=== PATIENT | male | born 1970 | race Caucasian/White ===

== ENCOUNTER 2022-01-16 11:24 | Observation (INO) ==
[2022-01-16 13:31] LABS: Appearance Urine Clear (Clear); Bilirubin Urine Negative (Negative); Blood Urine Negative (Negative); Color Urine Yellow; Glucose Urine UA Negative (Negative); Ketones Urine Negative (Negative); Leukocyte Esterase Urine Negative (Negative); Nitrite Urine Negative (Negative); Protein Urine Negative (Negative); Specific Gravity Urine 1.011 (1.000-1.030); Urobilinogen Urine Negative (Negative)
[2022-01-16 13:54] LABS: Basophils # (auto) 0.03 K/uL (0-0.2); Basophils % (auto) 0.5 %; Eosinophils # (auto) 0.08 K/uL (0-0.50); Eosinophils % (auto) 1.4 %; Hematocrit (blood only) 44.2 % (40.1-51.0); Hemoglobin 15.6 g/dl (14.0-18.0); Immature Granulocytes # (auto) 0.01 K/uL (0.00-0.02); Immature Granulocytes % (auto) 0.2 %; Lymphocytes % (auto) 23.3 %; Mean Corpuscular Hemoglobin 31.3 pg (25.0-34.0); Mean Corpuscular Hgb Conc 35.3 g/dL (32.0-36.0); Mean Corpuscular Volume 88.6 fL (80.0-100.0); Mean Platelet Volume 10.2 fL (9.4-12.4); Monocytes # (auto) 0.45 K/uL (0.24-0.82); Monocytes % (auto) 8.1 %; Neutrophils % (auto) 66.5 %; Platelet Count 226 K/uL (130-400); RDW Coefficient of Variation 12.2 % (11.5-14.5); RDW Standard Deviation 39.3 fL (36.4-46.3); Red Blood Count 4.99 M/uL (4.63-6.08); White Blood Count 5.57 K/ul (4.8-10.8)
[2022-01-16 14:12] LABS: Albumin Level 4.3 gm/dl (3.4-5.0); BUN Creatinine Ratio 13.5 (10-20); Bilirubin,Total 0.8 mg/dl (0.2-1.0); Calcium 9.2 mg/dl (8.5-10.1); Creatinine Clr Calc Pharmacy 95.1 ml/min; Est GFR (African American) 106.4 ml/min; Est GFR (Non-African American) 91.8 ml/min; Globulin 2.2 gm/dl (2.5-4.0); Potassium 4.3 mmol/L (3.5-5.1); Total Protein 6.5 gm/dl (6.0-8.3)
[2022-01-16] MEDS ORDERED: OPTIRAY 300 100mL IV ONE (15:32)
--- NOTE | 2022-01-16 16:04 | CT Scan Report ---
CHEST CT WITH CONTRAST HISTORY: Acute chest and abdominal pain with loss of sensation. loss of sensation below nipples TECHNIQUE: Multiaxial CT images of the chest, abdomen and pelvis were performed following the IV admi nistration of 90 cc of Optiray. A dose lowering technique was utilized adhering to the principles o f ALARA. COMPARISON: None. FINDINGS: CT CHEST: Unremarkable thyroid. No lymphadenopathy. The heart is normal in size without pericardial effusion. Unremarkable thoracic aorta. Unremarkable pulmonary artery. No pneumothorax, pleural effusion, airspa ce consolidation or overt pulmonary edema. Mild dependent subsegmental bibasilar atelectasis. There a re no suspicious pulmonary nodules or masses identified. The central airways are patent. Unremarkable soft tissues. No acute fracture or destructive bone lesion identified. CT ABDOMEN/PELVIS: No pneumatosis or pneumoperitoneum. Unremarkable spleen, pancreas, adrenal glands. There is equivocal gallbladder wall thickening without gallbladder distention. There are 2 cysts within the left hepati c lobe measuring up to 3.7 cm. Hepatic steatosis. Patency of the hepatic and portal veins. Unremarkab le kidneys. No hydronephrosis. Decompressed or bladder with wall thickening and perivesicular strandi ng. Prostamegaly. A Kirby catheter is in place. 1.3 cm fatty attenuating focus in the abdominal right lower quadrant on image 3 6 is likely benign. Small fat filled left inguinal hernia. No abdominal ao rtic aneurysm or lymphadenopathy. No bowel obstruction or bowel wall thickening. Nonspecific trace free pelvic fluid. Colonic diverticu losis. Moderate fecal retention. Normal appendix. Unremarkable soft tissues. No acute fracture. IMPRESSION: 1. No acute intrathoracic abnormality. 2. No bowel obstruction or bowel wall thickening. Normal appendix. 3. Decompressed urinary bladder with wall thickening and nonspecific trace free pelvic fluid. 4. Equivocal gallbladder wall thickening could be correlated with a right upper quadrant abdominal ul trasound. 5. Additional findings as above. ACT 112: Negative or not required by law. Electronically signed by: Luis Carlos Olson M.D. 01/16/2022 4:03 PM
--- NOTE | 2022-01-16 18:49 | Magnetic Resonance Report ---
MR thoracic spine wo con HISTORY: 51 years-old Male numbness below nipples numbness of the torso and upper extremities. COMPARISON: MRI cervical and lumbar spine study the TECHNIQUE: Multiplanar multisequence MRI of the thoracic spine was obtained without the use of IV con trast. FINDINGS: No gross extraspinal abnormality identified. The study is mildly motion degraded. Discogenic degenera tion of the lower cervical spine. There is normal signal of the thoracic and imaged cervical spinal c ord no acute fracture, subluxation, endplate erosion, significant bone marrow or soft tissue edema. T here is mild multilevel disc desiccation with minimal intervertebral disc space narrowing and spondyl itic spurring with mild facet arthrosis. No significant central canal or neural foraminal narrowing. IMPRESSION: 1. No significant central canal or neural foraminal narrowing of the thoracic spine. 2. No acute fracture. 3. Normal signal of the thoracic spinal cord. ACT 112: Negative or not required by law. The above report was generated using voice recognition software. It may contain grammatical, syntax o r spelling errors. Electronically signed by: Luis Carlos Olson M.D. 01/16/2022 6:47 PM
[2022-01-16] MEDS ORDERED: LIDOCAINE 1% LOCAL 20 ML VIAL ONE (21:39)
[2022-01-16 22:35] LABS: Appearance CSF Clear; CSF Count Tube # 3; CSF Xanthrochromic No xanthochromia; Color CSF Colorless; Red Blood Cell CSF (A) 0 /uL (0-); Total Protein CSF 84.3 mg/dl (15-45); White Blood Cell CSF (A) 0 /uL (0-5)
--- NOTE | 2022-01-16 22:50 | History & Physical Report ---
Date of Service January 16, 2022 Assessment & Plan (1) Weakness of both legs: Plan: 51yo male with a history of HTN presents with a one-week history of multiple symptoms including bilateral but asymmetric skin hypersensitivity, skin hyperalgesia, skin paresthesias, LE weakness, urinary incontinence, and fecal incontinence, concerning for neuroinflammatory disorder e.g. transverse myelitis. Multiple neurologic symptoms concerning for acute transverse myelitis vs other neuroinflammatory conditions Multi-level, bilateral, asymmetric symptoms of acute onset concerning for transverse myelitis vs other neuroinflammatory conditions If symptoms are due to neuroinflammatory condition, could possibly have been triggered by recent covid infection VSS: BP controlled, no tachycardia or tachypnea, patient afebrile, spO2 adequate on room air CSF noted with elevated total protein (84.3) without increased glucose, no WBCs or RBCs CSF chemistry and VDRL/West Nile RNA testing pending, serum MS panel pending Other labs unremarkable; no leukocytosis or leukopenia, no anemia, platelets wnl, no electrolyte abnormalities, LFTs wnl, UA not infected Imaging findings noted in HPI; no cord compression seen on MRI Admit to med/surg Neuro checks q4h Per ED provider discussion with neurology, recommended IVIg 0.4g/kg once daily for five days Will also start dexamethasone 10mg daily for five days Rodriguez catheter placed PT/OT ordered, incentive spirometry ordered CM consulted given possibly complex needs upon discharge Hypertension BP well-controlled on admission Continue home lisinopril FEN: regular diet Code status: full code DVT ppx: SCDs Held home meds: flomax Consults: neurology PT/OT: ordered Case management: following Dispo: med/surg (2) Paresthesia: (3) Acute urinary retention: (4) Urinary incontinence: (5) Fecal incontinence: (6) Elevated CSF protein: History of Present Illness Primary Care Provider: Maribel Elilson 51yo male with a history of HTN presents with a one-week history of multiple symptoms including bilateral but asymmetric skin hypersensitivity, skin hyperalgesia, skin paresthesias, LE weakness, urinary incontinence, and fecal incontinence, concerning for neuroinflammatory disorder e.g. transverse myelitis. Summary of 01/13 visit: Three weeks ago, patient was diagnosed with covid; patient had fatigue and congestion for about 3-4 days, after which all symptoms resolved. Patient then presented to the ED on 01/13 (three days ago) with multiple symptoms, which had started three days prior. Symptoms started with hypersensitivity of the right trapezius area that progressed across his back and chest to his left arm over the course of the day. Had trouble sleeping due to discomfort but no overt pain. He then developed RLE weakness with associated difficulty walking, in addition to paresthesias of the abdomen. Patient developed hyperalgesia of his hands and wrists, as well as urine incontinence. At that time he did not have any significant low back pain, fever, chills, abdominal pain, nausea, vomiting, c hest pain, SOB, lightheadedness, dizziness, syncope, hematuria, or saddle anesthesia. 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 At that time, Lyme IgG testing and anaplasma/babesia smears were negative. Imaging done at 01/13 ED visit: MRI brain: no acute intracranial abnormality MRI c-spine: no fracture or subluxation; small focal central disc protrusions at C3-C4, C5-C6, and C6-C7 MRI l-spine: no fracture or subluxation; small focal central disc protrusions at L4-L5 and L5-S1 without significant central canal or neural foraminal narrowing; bladder appears distended A rodriguez was recommended for bladder decompression, but patient declined. Straight cath yielded 850mL urine and patient felt markedly improved. Patient was started on flomax, but became confused after the dose he received in the ED, and so he has not filled this or taken it since. Today's visit: Patient presents today with persistent symptoms. Patient reports a distended abdomen, persistent bilateral leg weakness, and issues with incontinence. Patient has had two episodes of fecal incontinence in addition to continued urinary incontinence since last ED visit. Endorses numbness from his thighs upward to just below the nipple line, sparing the groin. Patient denies fever, chills, headache, vision changes, CP, palpitations, SOB, edema, abdominal pain, nausea, vomiting, hematochezia, melena, back pain, ligh theadedness, dizziness, or other symptoms. Denies saddle anesthesia. Initial vitals today were unremarkable; BP controlled, no tachycardia or tachypnea, patient afebrile, spO2 adequate on room air. Initial labs in the ED were without leukocytosis or leukopenia, no anemia, platelets wnl, no electrolyte abnormalities, LFTs wnl, UA not infected. Covid PCR negative. MS panel pending. Lumbar puncture in the ED revealed elevated CSF protein (84.3) without increased glucose, no WBCs or RBCs. CSF chemistry and VDRL/West Nile RNA testing pending. Imaging done at 01/16 ED visit: CT a/p: no acute intrathoracic abnormality; no bowel obstruction or bowel wall thickening; decompressed urinary bladder with wall thickening and nonspecific trace free pelvic fluid; equivocal gallbladder wall thickening could be correlated with a right upper quadrant abdominal ultrasound CT chest: same findings as CT a/p above MRI t-spine w/wo contrast ([facility] read): unremarkable spine alignment; vertebral body heights well-maintained; no abnormal marrow signal or abnormal enhancement; in-house over-read pending Surrogate decision-maker in case of an emergency: wilner García (cell: [phone]) Allergies Allergy/AdvReac Type Severity Reaction Status Date / Time Penicillins AdvReac Hives Verified 01/18/22 08:57 Home Medications Medication Instructions Recorded Confirmed Type lisinopril 5 mg tablet 5 mg PO PM 08/14/21 01/18/22 History Past Med/Surg History Medical History Hypertension Surgical History No pertinent past surgical history Social History Smoking Status: Never smoker Hx Substance Use: No Preferred Language: Estonian Communication Ability: Effective Chainer Required: No Beliefs That Will Affect Care: Quaker marital status: Current Living Situation: Spouse current occupational status: employed Feels Safe at Home: Yes Assistive Devices: None Physical Exam Physical Exam: Constitutional: tired-appearing, no acute distress HEENT: NCAT, no conjunctival injection, no nystagmus CV: regular rhythm, no murmur appreciated, extremities well-perfused, no LE edema Resp: CTABL, no wheezes/rales/rhonchi appreciated, no increased work of breathing GI: soft, nondistended, nontender, BS normoactive MSK: no gross deformities appreciated Skin: warm, dry, no rash appreciated (per ED provider): rectal tone intact Neuro: alert, oriented, strength 5/5 in upper and lower extremities, coordination testing intact, sensation intact without overt deficit, CN2-12 grossly intact, no additional neurologic deficit appreciated Results & Data Results & Data ([facility]) Vital Signs (Past 12 Hours) Vital Signs Temp Pulse Pulse Resp BP BP Pulse Ox 01/16/22 22:05 59 L 20 144/61 H 96 01/16/22 19:24 77 20 133/86 97 01/16/22 17:02 70 20 125/76 97 01/16/22 11:30 36.9 C 71 18 129/78 99 O2 Del Method 01/16/22 22:05 Room Air 01/16/22 19:24 Room Air 01/16/22 17:02 Room Air 01/16/22 11:30 Room Air Supervising Physician Co-Signing Physician Notes Patient seen and examined, chart reviewed, case discussed with Dr. Downs and I agree with the assessment and plan as above. Resident Activity Tracking Resident Involvement: Resident Care Provided and Element Setter Coverage Note Care Provided: Adult Hospital Medicine
[2022-01-16] MEDS ORDERED: GADOBUTROL 65ML VIAL IV ONE (23:11)
--- NOTE | 2022-01-16 23:28 | Emergency Department Note ---
Impression & Plan Acute urinary retention, Paresthesia, Urinary incontinence, Fecal incontinence, Falls [facility] [place] [facility] Provider Note NAME: CHELITA CANTU AGE: 51 SEX: M ARRIVES VIA: Walk-In INFORMANT: Patient and his ED PROVIDER(S): Jovita Mancilla DO CHIEF COMPLAINT: Urinary incontinence, fecal incontinence and falls PLAN: Disposition: Admit to the [facility] Condition: Guarded MEDICAL DECISION MAKING: This is a 51-year-old male patient who presents back to the emergency department after recurrent episodes of urinary incontinence, falls and now episodes of fecal incontinence. The patient had been seen here 4 days ago and had a work-up at that time for urinary retention. It seemed that he was having episodes of overflow incontinence. They had suggested at that time he have a Kirby catheter left in place but the patient had refused. That incontinence persisted over the weekend but the patient developed more symptoms. He was having episodes of gait abnormality with falls, leg weakness, and had to episodes of fecal incontinence. He also now hasparesthesias of the trunk from the nipple down to the genitals. During his visit on Sunday, the patient had an MRI of the brain, C-spine and lumbar spine along with laboratory testing which included a Lyme test. These were all negative. Unfortunately, the patient's symptoms have progressed. I obtained a CT scan of the chest and abdomen along with an MRI of the thoracic spine. I consulted with Dr. Parks, the neurologist on-call who recommended lumbar puncture along with a contrasted MRI of the thoracic spine. These were both completed. A contrasted MRI of the thoracic spine was unremarkable but the LP revealed a high protein level. Dr. Parks suggested starting IVIG. I passed this along to the admitting team. Triage Nursing notes reviewed and agree with them. Additional history obtained from the patient's who is at the bedside Prior medical records reviewed from his visit at the end of last week Vital Signs: reviewed and unremarkable Differential diagnosis: Thoracic spine lesion, transverse myelitis, Guillain-Mcdonough syndrome, postinfectious myelopathy, MS ER treatment provided: IVIG Diagnostics interpreted by me: Laboratory studies: See below: Imaging studies: As per radiology CT chest: See report CT abdomen pelvis: See report MRI thoracic spine: See report MRI thoracic spine with contrast: See report Consultation(s): Dr. Parks - Neurology HPI: 51/M arrives for evaluation of urinary incontinence, fecal incontinence, and falls. Over the past week, the patient has developed urinary incontinence and difficulty walking. 4 days ago, the patient noticed that he had a sensation of pins or needles to his abdomen. He was seen here on Sunday and had a significant work-up for urinary retention and urinary incontinence which seem to be an overflow incontinence situation. Upon discharge, the patient continued to have urinary incontinence but then developed fecal incontinence, abdominal bloating and increasing leg weakness and gait abnormality to the point that he had some falls over the weekend. His explains an episode where the patient became significantly diaphoretic, confused, and nearly passed out. ROS: See above HPI for pertinent positives & negatives. A total of 10 systems reviewed and were otherwise negative. PAST MEDICAL HISTORY:See Below PAST SURGICAL HISTORY:See Below FAMILY HISTORY:See Below SOCIAL HISTORY:See Below HOME MEDICATIONS: Lisinopril ALLERGIES: Penicillin VITALS:See Below PHYSICAL EXAMINATION: HEENT: Head - normocephalic and atraumatic. Pupils are equal, round, and reactive to light. Extraocular eye muscles are intact and sclera are anicteric. Nose - moist nasal mucosa without discharge. Mouth - moist buccal mucosa. Oropharynx is nonerythematous and there is no tonsillar exudate or edema noted. Neck: Supple; no JVD, nuchal rigidity, cervical lymphadenopathy. Heart: Regular rate and rhythm. There is a normal S1 and S2 with no murmurs, clicks, or gallops appreciated. Lungs: Clear to auscultation bilaterally with no wheezes, rales, or rhonchi. Abdomen: Soft, completely nontender, nondistended, with good bowel sounds. There are no palpable pulsatile masses or hepatosplenomegaly. There is no guarding, rigidity, or rebound noted. Extremities: No evidence of cyanosis, clubbing, or edema. There are easily palpable peripheral pulses. Neuro:The patient is awake and alert, oriented to day, time, and place. Muscle strength is 5/5 in all 4 extremities. 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 There are no cerebellar signs. Skin: The patient has loss of sensation over the anterior chest from the nipple line down to the pubic symphysis. Sensation seems to be normal in the legs. Rectal: Patient has normal rectal tone with soft brown stool. ED COURSE: Times/Reassessments: 1430 the patient was evaluated in room C6. Nursing staff had already placed a Kirby catheter in the patient as he had been incontinent of urine and had a bladder scan a complete history and physical was performed. Urine in the bladder. Of greater than 1000 mL of urine in the bladder. Previous electronic medical records were reviewed. The patient went for CT scan of the chest and abdomen. The patient then went for MRI of the thoracic spine. I discussed the case with the neurologist on-call. Lumbar Puncture Indication: Paresthesias of the trunk and gait abnormality. Verbal consent was obtained after the risks and benefits were explained. A time out was taken and the correct patient and site identified. The patient was placed in the upright position and the back was prepped with betadine and draped in the standard fashion. The L3 intervertebral space was identified, anesthetized locally with 1% lidocaine without epinephrine, and the spinal needle was inserted through the skin with the bevel parallel to the dural fibers. The needle was carefully advanced into the lumbar cistern and 4 tubes of clear CSF was obtained. The stylet was replaced and the needle was removed. A bandaid was placed and the patient was placed in the supine position. The patient tolerated the procedure well and there were no complications. The patient laid flat with the head only slightly elevated for approximately 1 hour. He went back for MRI of the thoracic spine with contrast. I discussed the case with the [facility] Hospitalist. 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 Beliefs That Will Affect Care: Holiness marital status: Current Living Situation: Spouse current occupational status: employed Feels Safe at Home: Yes Assistive Devices: None Allergies Allergies Allergy/AdvReac Type Severity Reaction Status Date / Time Penicillins AdvReac Hives Verified 01/18/22 08:57 Home Meds Home Medications Medication Instructions Recorded Confirmed lisinopril 5 mg tablet 5 mg PO PM 08/14/21 01/18/22 Results & Data (ED) Vital Signs Vital Signs - 24 hr 01/16/22 11:30 01/16/22 17:02 01/16/22 19:24 Temperature 36.9 C Temperature Source Temporal Artery Scan Pulse Rate 71 Pulse Rate [Right Finger] 70 77 Respiratory Rate 18 20 20 Respiratory Effort / Characteristics Non-Labored Spontaneous Non-Labored Non-Labored Respiratory Depth Normal Normal Normal Respiratory Pattern Regular Blood Pressure 129/78 Blood Pressure [Right Arm] 125/76 133/86 Blood Pressure Mean 95 Blood Pressure Mean [Right Arm] 92 101 Pulse Oximetry 99 97 97 Oxygen Delivery Method Room Air Room Air Room Air Sepsis Recent Fever Within 48 Hours No Sepsis New/Unexplained Change in Mental Status No Sepsis Action Taken by Nursing No Action Required 01/16/22 22:05 01/16/22 23:45 01/17/22 00:01 Temperature 37.2 C Temperature Source Oral Pulse Rate Pulse Rate [Right Finger] 59 L 73 82 Respiratory Rate 20 18 18 Respiratory Effort / Characteristics Non-Labored Non-Labored Non-Labored Respiratory Depth Normal Normal Normal Respiratory Pattern Blood Pressure Blood Pressure [Right Arm] 144/61 H 140/71 134/81 Blood Pressure Mean Blood Pressure Mean [Right Arm] 88 94 98 Pulse Oximetry 96 97 97 Oxygen Delivery Method Room Air Room Air Room Air Sepsis Recent Fever Within 48 Hours Sepsis New/Unexplained Change in Mental Status Sepsis Action Taken by Nursing 01/17/22 00:00 01/17/22 00:00 01/17/22 00:30 Temperature Temperature Source Pulse Rate 71 Pulse Rate [Right Finger] Respiratory Rate 18 Respiratory Effort / Characteristics Respiratory Depth Respiratory Pattern Blood Pressure 134/81 126/73 Blood Pressure [Right Arm] Blood Pressure Mean 98 90 Blood Pressure Mean [Right Arm] Pulse Oximetry 95 Oxygen Delivery Method Sepsis Recent Fever Within 48 Hours Sepsis New/Unexplained Change in Mental Status Sepsis Action Taken by Nursing 01/17/22 00:30 Temperature Temperature Source Pulse Rate 66 Pulse Rate [Right Finger] Respiratory Rate 19 Respiratory Effort / Characteristics Respiratory Depth Respiratory Pattern Blood Pressure Blood Pressure [Right Arm] Blood Pressure Mean Blood Pressure Mean [Right Arm] Pulse Oximetry 96 Oxygen Delivery Method Sepsis Recent Fever Within 48 Hours Sepsis New/Unexplained Change in Mental Status Sepsis Action Taken by Nursing Laboratory Data Result diagrams: 01/17/22 05:30 01/17/22 05:30 Lab Results 01/16/22 01/16/22 01/16/22 Range/Units 13:05 13:15 13:15 WBC 5.57 (4.8-10.8) K/ul RBC 4.99 (4.63-6.08) M/uL Hgb 15.6 (14.0-18.0) g/dl Hct 44.2 (40.1-51.0) % MCV 88.6 (80.0-100.0) fL MCH 31.3 (25.0-34.0) pg MCHC 35.3 (32.0-36.0) g/dL RDW Std Deviation 39.3 (36.4-46.3) fL RDW Coeff of Elzbieta 12.2 (11.5-14.5) % Plt Count 226 (130-400) K/uL MPV 10.2 (9.4-12.4) fL Immature Gran % (Auto) 0.2 % Neut % (Auto) 66.5 % Lymph % (Auto) 23.3 % [facility] % (Auto) 8.1 % Eos % (Auto) 1.4 % Baso % (Auto) 0.5 % Neut # (Auto) 3.70 (1.4-6.5) K/uL Lymph # (Auto) 1.30 (1.2-3.4) K/uL [facility] # (Auto) 0.45 (0.24-0.82) K/uL Eos # (Auto) 0.08 (0-0.50) K/uL Baso # (Auto) 0.03 (0-0.2) K/uL Immature Gran # (Auto) 0.01 (0.00-0.02) K/uL Sodium 140 (136-145) mmol/L Potassium 4.3 (3.5-5.1) mmol/L Chloride 107 (98-107) mmol/L Carbon Dioxide 28 (21-32) mmol/L Anion Gap 5 (3-11) BUN 13 (6-23) mg/dl Creatinine 0.96 (0.6-1.4) mg/dl Est Cr Clr Drug Dosing 95.1 ml/min Est GFR ( Amer) 106.4 ml/min Est GFR (Non-Af Amer) 91.8 ml/min BUN/Creatinine Ratio 13.5 (10-20) Glucose 85 (70-99(Fasting)) mg/dl Calcium 9.2 (8.5-10.1) mg/dl Total Bilirubin 0.8 (0.2-1.0) mg/dl AST 14 (13-39) U/L ALT 19 (7-52) U/L Alkaline Phosphatase 35 (34-104) U/L Total Protein 6.5 (6.0-8.3) gm/dl Albumin 4.3 (3.4-5.0) gm/dl Globulin 2.2 L (2.5-4.0) gm/dl Albumin/Globulin Ratio 2.0 (0.9-2) Urine Color Yellow Urine Appearance Clear (Clear) Urine pH 7.0 (4.5-7.5) Ur Specific Nichols 1.011 (1.000-1.030) Urine Protein Negative (Negative) Urine Glucose (UA) Negative (Negative) Urine Ketones Negative (Negative) Urine Blood Negative (Negative) Urine Nitrite Negative (Negative) Urine Bilirubin Negative (Negative) Urine Urobilinogen Negative (Negative) Ur Leukocyte Esterase Negative (Negative) Fluid Comment CSF Appearance CSF Color Xanthrochromic CSF WBC (0-5) /uL CSF RBC (0-) /uL CSF Cell Count Tube # CSF Chemistry Tube # CSF Glucose (40-70) mg/dl CSF Total Protein (15-45) mg/dl SARS-CoV-2, RNA, NAAT (NEGATIVE) 01/16/22 01/16/22 01/16/22 Range/Units 21:45 21:45 22:06 WBC (4.8-10.8) K/ul RBC (4.63-6.08) M/uL Hgb (14.0-18.0) g/dl Hct (40.1-51.0) % MCV (80.0-100.0) fL MCH (25.0-34.0) pg MCHC (32.0-36.0) g/dL RDW Std Deviation (36.4-46.3) fL RDW Coeff of Elzbieta (11.5-14.5) % Plt Count (130-400) K/uL MPV (9.4-12.4) fL Immature Gran % (Auto) % Neut % (Auto) % Lymph % (Auto) % [facility] [place] [facility] % (Auto) % Eos % (Auto) % Baso % (Auto) % Neut # (Auto) (1.4-6.5) K/uL Lymph # (Auto) (1.2-3.4) K/uL [facility] [place] [facility] # (Auto) (0.24-0.82) K/uL Eos # (Auto) (0-0.50) K/uL Baso # (Auto) (0-0.2) K/uL Immature Gran # (Auto) (0.00-0.02) K/uL Sodium (136-145) mmol/L Potassium (3.5-5.1) mmol/L Chloride (98-107) mmol/L Carbon Dioxide (21-32) mmol/L Anion Gap (3-11) BUN (6-23) mg/dl Creatinine (0.6-1.4) mg/dl Est Cr Clr Drug Dosing ml/min Est GFR ( Amer) ml/min Est GFR (Non-Af Amer) ml/min BUN/Creatinine Ratio (10-20) Glucose (70-99(Fasting)) mg/dl Calcium (8.5-10.1) mg/dl Total Bilirubin (0.2-1.0) mg/dl AST (13-39) U/L ALT (7-52) U/L Alkaline Phosphatase (34-104) U/L Total Protein (6.0-8.3) gm/dl Albumin (3.4-5.0) gm/dl Globulin (2.5-4.0) gm/dl Albumin/Globulin Ratio (0.9-2) Urine Color Urine Appearance (Clear) Urine pH (4.5-7.5) Ur Specific Nichols (1.000-1.030) Urine Protein (Negative) Urine Glucose (UA) (Negative) Urine Ketones (Negative) Urine Blood (Negative) Urine Nitrite (Negative) Urine Bilirubin (Negative) Urine Urobilinogen (Negative) Ur Leukocyte Esterase (Negative) Fluid Comment CSF Appearance Clear CSF Color Colorless Xanthrochromic No xanthochromia CSF WBC 0 (0-5) /uL CSF RBC 0 (0-) /uL CSF Cell Count Tube # 3 CSF Chemistry Tube # 1 CSF Glucose 49 (40-70) mg/dl CSF Total Protein 84.3 H (15-45) mg/dl SARS-CoV-2, RNA, NAAT NEGATIVE (NEGATIVE) Administered Medications Discontinued Medications Dexamethasone (Dexamethasone Sod Inj 4 Mg/Ml Vial) 10 mg IV ONE STA Stop: 01/16/22 23:39 Last Admin: 01/16/22 23:55 Dose: 10 mg Documented By: JIGNESH Gadobutrol (Gadobutrol 65ml Vial) 8.5 ml IV ONCE ONE Stop: 01/16/22 23:12 Last Admin: 01/16/22 23:11 Dose: 8.5 ml Documented By: ROGELIO Immune Globulin (Gamunex-C 10%) 100 mls @ 52 mls/hr IV Q24H EH; Protocol Stop: 01/21/22 04:01 Last Infusion: 01/17/22 05:47 Dose: 0 mls/hr Documented By: Infusion: 01/17/22 05:40 Dose: 208 mls/hr Documented By: Infusion: 01/17/22 05:10 Dose: 104 mls/hr Documented By: Admin: 01/17/22 04:40 Dose: 52 mls/hr Documented By: RICHIE Immune Globulin (Gamunex-C 10%) 200 mls @ 52 mls/hr IV Q24H EH; Protocol Stop: 01/21/22 08:51 Last Infusion: 01/17/22 06:41 Dose: 0 mls/hr Documented By: Infusion: 01/17/22 06:29 Dose: 416 mls/hr Documented By: Admin: 01/17/22 05:55 Dose: 208 mls/hr Documented By: RICHIE Ioversol (Optiray 300 100ml) 90 ml IV ONCE ONE Stop: 01/16/22 15:33 Last Admin: 01/16/22 15:36 Dose: 90 ml Documented By: BABAR Lidocaine HCl (Lidocaine 1% Local 20 Ml Vial) Confirm Administered Dose 20 ml .ROUTE .STK-MED ONE Stop: 01/16/22 21:40 Last Admin: 01/16/22 22:04 Dose: 20 ml Documented By: MILLIE Imaging Data Radiologist's Impression: Thoracic Spine MRI 01/16/22 22:09 THORACIC SPINE MRI WITH AND WITHOUT CONTRAST HISTORY: Numbness and weakness in legs. Evaluate thoracic spine with contrast. TECHNIQUE: Axial and sagittal pre and postcontrast T1 sequences of the thoracic spine were performed with the intravenous administration of 8.5 cc of Gadavist contrast at 1.5 Maribell MRI. COMPARISON: Noncontrast thoracic spine MRI 01/16/2022. FINDINGS: No fracture or subluxation within the thoracic spine. Disc spaces are preserved. No abnormal enhancement. Specifically, the thoracic spinal cord demonstrate a normal signal intensity. Paravertebral soft tissues are unremarkable. IMPRESSION: No abnormal enhancement within the thoracic spine. ACT 112: Negative or not required by law. Electronically signed by: Harlan Sanders M.D. 01/17/2022 7:47 AM Discharge Plan Visit Data Chief Complaint: Leg Weakness, Bilateral Stated Complaint: LEG WEAKNESS,BLOATED ABD ED Provider: Jovita Mancilla Discharge Problem: Acute urinary retention, Paresthesia, Urinary incontinence, Fecal incontinence, Falls Patient Disposition: Admitted As Inpatient Discharge Instructions Interventions: ED Discharge Assessment Last Done: 01/17/22 03:17 : Urinary incontinence Qualifiers: Urinary Incontinence type: overflow incontinence Qualified Code(s): N39.490 - Overflow incontinence Fecal incontinence Qualifiers: Fecal incontinence type: unspecified Qualified Code(s): R15.9 - Full incontinence of feces Falls Qualifiers: Encounter type: initial encounter Qualified Code(s): W19.XXXA - Unspecified fall, initial encounter
[2022-01-16] MEDS ORDERED: DEXAMETHASONE SOD INJ 4 MG/ML VIAL IV STA (23:38)
[2022-01-17] MEDS ORDERED: ONDANSETRON INJ 2 MG/ML 2 ML VIAL IV PRN (02:56)
[2022-01-17] MEDS ORDERED: MELATONIN 3 MG TAB PO PRN (02:56)
[2022-01-17] MEDS ORDERED: ACETAMINOPHEN 325 MG TAB PO PRN (02:56)
[2022-01-17] MEDS ORDERED: [UNRECOGNIZED DRUG - OTHER] IV SCH (04:00)
[2022-01-17] MEDS ORDERED: IMMUNE GLOBULIN IV SCH (04:00)
[2022-01-17] MEDS ORDERED: IMMUNE GLOB-GAMUNEX HUMAN 200 ML IV SCH (05:00)
[2022-01-17 05:48] LABS: Hematocrit (blood only) 43.4 % (40.1-51.0); Hemoglobin 15.7 g/dl (14.0-18.0); Mean Corpuscular Hemoglobin 31.7 pg (25.0-34.0); Mean Corpuscular Hgb Conc 36.2 g/dL (32.0-36.0); Mean Corpuscular Volume 87.5 fL (80.0-100.0); Platelet Count 222 K/uL (130-400); RDW Coefficient of Variation 11.9 % (11.5-14.5); RDW Standard Deviation 38.1 fL (36.4-46.3); Red Blood Count 4.96 M/uL (4.63-6.08); White Blood Count 7.47 K/ul (4.8-10.8)
[2022-01-17 06:09] LABS: Basophils # (auto) 0.01 K/uL (0-0.2); Basophils % (auto) 0.1 %; Immature Granulocytes # (auto) 0.02 K/uL (0.00-0.02); Immature Granulocytes % (auto) 0.3 %; Lymphocytes # (auto) 0.55 K/uL (1.2-3.4); Lymphocytes % (auto) 7.4 %; Monocytes # (auto) 0.05 K/uL (0.24-0.82); Monocytes % (auto) 0.7 %; Neutrophils # (auto) 6.84 K/uL (1.4-6.5); Neutrophils % (auto) 91.5 %
[2022-01-17 06:19] LABS: Albumin Globulin Ratio 1.9 (0.9-2); Albumin Level 4.3 gm/dl (3.4-5.0); BUN Creatinine Ratio 14.1 (10-20); Calcium 9.3 mg/dl (8.5-10.1); Creatinine Clr Calc Pharmacy 92.2 ml/min; Est GFR (African American) 102.5 ml/min; Est GFR (Non-African American) 88.4 ml/min; Globulin 2.3 gm/dl (2.5-4.0); Potassium 4.4 mmol/L (3.5-5.1); Total Protein 6.6 gm/dl (6.0-8.3)
--- NOTE | 2022-01-17 07:21 | Hospitalist Progress Note ---
Date of Service January 17, 2022 Assessment & Plan (1) Weakness of both legs: Plan: Pt is a 51 yo male with a history of HTN presents with a one-week history of multiple symptoms including bilateral but asymmetric skin hypersensitivity, skin hyperalgesia, skin paresthesias, LE weakness, urinary incontinence, and fecal incontinence, concerning for neuroinflammatory disorder (transverse myelitis). Multiple neurologic symptoms concerning for acute transverse myelitis vs other neuroinflammatory conditions - Multi-level, bilateral, asymmetric symptoms of acute onset concerning for transverse myelitis vs other neuroinflammatory conditions - If symptoms are due to neuroinflammatory condition, could possibly have been triggered by recent COVID infection - CSF noted with elevated total protein (84.3) without increased glucose, no WBCs or RBCs - CSF chemistry and VDRL/West Nile RNA testing pending, serum MS panel pending, babesia and anaplasma PCR pending - Other labs unremarkable; no leukocytosis or leukopenia, no anemia, platelets wnl, no electrolyte abnormalities, LFTs wnl, UA not infected - No acute findings on MRI brain, thoracic, lumbar spine or CTAP to suggest possible etiology - Neuro checks q4h - Per ED provider discussion with neurology, recommended IVIg 0.4g/kg once daily for five days. (1st day today) - Dexamethasone 10mg daily for five days. (1st day today) - Rodriguez catheter in place - PT/OT ordered, incentive spirometry ordered - CM consulted given possibly complex needs upon discharge - Neurology recommends continued inpatient monitoring with continuation of IVIg for 5 days. Pt does not desire admission at this time. He would prefer the treatments be set up for at home/MTU Hypertension - BP well-controlled on admission - Continue home lisinopril FEN: regular diet Code status: full code DVT ppx: SCDs Held home meds: flomax Dispo: med/surg (2) Paresthesia: (3) Acute urinary retention: (4) Urinary incontinence: (5) Fecal incontinence: (6) Elevated CSF protein: Admission and Anticipated Discharge Date Admission Date: January 17, 2022 Subjective Pt is a 51 yo male with a history of HTN presents with a one-week history of multiple symptoms including bilateral but asymmetric skin hypersensitivity, skin hyperalgesia, skin paresthesias, LE weakness, urinary incontinence, and fecal incontinence, concerning for neuroinflammatory disorder (transverse myelitis). 01/17/2022: Pt describes improvement in his symptoms today. His skin paresthesias are now limited to the left side of abdomen from about nipple line to inguinal region. He still feels weak upon standing for a "split second" but then feels that his strength is adequate. This weakness tends to improve with walking. He currently has a rodriguez. His last BM was Sunday. He denies fever, chills, visual changes, headaches, pain, saddle anesthesia. Physical Exam 2 Constitutional: NAD, vitals WNL, afebrile Eyes: PERRL Respiratory: CTA bilaterally, no increased work of breathing. No rhonchi, rales, or wheezing. Cardiovascular: RRR. No murmur noted. S1 and S2 normal. Neurologic: 5/5 strength throughout upper and lower extremities. Sensation intact and equal throughout except left side of abdomen from below nipple line to inguinal region pt has pins and needles sensation. This sensation begins midline and starts to wrap around his back. Gait normal Genitourinary: Rodriguez in place Results & Data Results & Data ([facility]) Vital Signs (Past 12 Hours) Vital Signs Temp Pulse Pulse Resp BP BP Pulse Ox 01/17/22 06:29 72 18 111/68 95 01/17/22 05:40 74 18 104/56 L 92 01/17/22 05:10 75 18 103/58 L 92 01/17/22 04:07 37.1 C 86 18 134/71 95 01/17/22 03:00 84 20 01/17/22 03:00 140/62 01/17/22 02:30 77 18 94 01/17/22 02:30 122/63 01/17/22 02:00 72 20 93 01/17/22 02:00 145/66 H 01/17/22 01:30 75 20 95 01/17/22 01:30 114/65 01/17/22 01:00 70 23 94 01/17/22 01:00 141/80 H 01/17/22 01:04 75 18 141/80 H 96 01/17/22 00:30 66 19 96 01/17/22 00:30 126/73 01/17/22 00:00 71 18 95 01/17/22 00:00 134/81 01/17/22 00:01 82 18 134/81 97 01/16/22 23:45 37.2 C 73 18 140/71 97 01/16/22 22:05 59 L 20 144/61 H 96 01/16/22 19:24 77 20 133/86 97 O2 Del Method 01/17/22 06:29 Room Air 01/17/22 05:40 Room Air 01/17/22 05:10 Room Air 01/17/22 04:07 Room Air 01/17/22 03:00 01/17/22 03:00 01/17/22 02:30 01/17/22 02:30 01/17/22 02:00 01/17/22 02:00 01/17/22 01:30 01/17/22 01:30 01/17/22 01:00 01/17/22 01:00 01/17/22 01:04 Room Air 01/17/22 00:30 01/17/22 00:30 01/17/22 00:00 01/17/22 00:00 01/17/22 00:01 Room Air 01/16/22 23:45 Room Air 01/16/22 22:05 Room Air 01/16/22 19:24 Room Air Resident Activity Tracking Resident Involvement: Resident Care Provided Care Provided: Adult Hospital Medicine
--- NOTE | 2022-01-17 07:48 | Magnetic Resonance Report ---
THORACIC SPINE MRI WITH AND WITHOUT CONTRAST HISTORY: Numbness and weakness in legs. Evaluate thoracic spine with contrast. TECHNIQUE: Axial and sagittal pre and postcontrast T1 sequences of the thoracic spine were performed with the intravenous administration of 8.5 cc of Gadavist contrast at 1.5 Maribell MRI. COMPARISON: Noncontrast thoracic spine MRI 01/16/2022. FINDINGS: No fracture or subluxation within the thoracic spine. Disc spaces are preserved. No abnormal enhancem ent. Specifically, the thoracic spinal cord demonstrate a normal signal intensity. Paravertebral soft tissues are unremarkable. IMPRESSION: No abnormal enhancement within the thoracic spine. ACT 112: Negative or not required by law. Electronically signed by: Harlan Sanders M.D. 01/17/2022 7:47 AM
[2022-01-17] MEDS ORDERED: IMMUNE GLOBULIN (HUMAN) SOLN IV SCH (09:00)
--- NOTE | 2022-01-17 13:53 | Neurology Consultation ---
Date of Consultation January 17, 2022 Assessment & Plan (1) Urinary incontinence: (2) Fecal incontinence: (3) Paresthesia: (4) Weakness of both legs: (5) Elevated CSF protein: (6) Radicular pain of thoracic region: (7) Acute urinary retention: Plan ASSESSMENT and PLAN: 1. Subacute, progressive paresthesia, involving right upper extremity, right lower extremity, and trunk with sensory level at T4, additional new urinary incontinence, one occasion no bowel incontinence, unsteady gait, and subjective leg weakness. 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 Presentation is not typical for Guillain-Mcdonough syndrome or CIDP, however, variants of such syndromes are still in differential. Plan: We do recommend IVIG, 0.4 g/kg daily, for 5 days. We do recommend inpatient monitoring and treatment. However, the patient refused admission and prefers to receive IVIG as an outpatient treatment. If he is adamant with admission, then IVIG treatment can be scheduled in outpatient setting. If the patient lives, then he will take responsibility and he is aware about risks of neurological decline, and receiving IVIG in outpatient setting. CSF work-up including MS panel, and West Nile virus titer are pending. If the patient does not respond to IVIG treatment, then further work-up including ganglioside antibody panel might be considered. Follow-up with neurology clinic in 2 weeks is strongly recommended. If the patient accept admission, then we will follow patient with you. Thank you for the consultation. History of Present Illness Reason for Consultation: Paresthesias, unsteady gait, bowel and bladder incontinence Requesting Physician: Janey Castro MD Attending Physician: Janey Castro MD History of Present Illness The patient is a very pleasant 51-year-old gentleman, who has been having unusual neurological syndrome, who presented to the emergency department yesterday, due to worsening symptoms. 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 Like many other coworkers, he had COVID-19 infection 3 weeks ago. Symptoms subsided in a week, and he returned back to work without any limitation. A week ago, the patient noticed sudden onset right proximal upper extremity, chest and shoulder paresthesia with some unusual pain. There was no injury or unusual physical activity prior to this. The patient was able to sleep overnight, and next day, he noticed decreased sensation with unusual paresthesia affecting right side of her chest, below the nipple, down to groin region. He also noticed right arm and right leg proximal paresthesia with some decreased or altered sensation. He did not seek medical attention right away. Later, he noticed some imbalance during ambulation which is described as of wobbliness. He was still able to walk but noticed some weakness and fatigue in his legs. Next day, his balance and ambulation was deteriorated further, and he was hardly able to walk without holding on objects. His left side of her chest and shoulder was also numb, with unusual tingling sensation, going down to groin region. There was obvious sensory leveling at T4. On the same day in the evening, the patient had an urinary incontinence. He was unaware about wetting himself. Next day, because of recurrent urinary incontinence as well as difficulty emptying urinary bladder, the patient went to emergency department. Kirby catheter was inserted because of urinary retention. The patient was not having respiratory distress, swallowing difficulty or any other cranial nerve symptoms. Initial presentation was unusual, and extensive work-up was done in the emergency department including head MRI with and without contrast, cervical spine MRI with and without contrast, and lumbar spine MRI without contrast, with unremarkable findings other than some bulging multilevel cervical disks. There was no cord compression, evidence of demyelinating lesions, or myelopathy. Other routine laboratory work-up did not show any abnormality. Lyme titer was also checked because the patient was in the field recently, but without any tick bite. All of abs including inflammatory parameters were negative, and the patient was discharged home with outpatient follow-up with urology on Sunday. The same evening and on Sunday, the patient was feeling better, without urinary incontinence, and was ambulating not normal but much better. He went back to work but, he noticed urinary incontinence while he was sitting in his car. He also had a near syncopal episode with dizziness, lightheadedness, while he was not eating and drinking well on Sunday evening. During this event, the patient had bowel incontinence with very loose stool. Sunday morning, he called his primary care physician, and abdominal and pelvic CT was recommended, and the patient was resent to emergency department. CT studies did not show abnormality, and overnight, on-call neurology was consulted. 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 Even though he was complaining of leg weakness and heaviness, but physical examination did not reveal any obvious weakness. His wobbliness has been better today. He has Kirby catheter in place and he is not sure whether he is still incontinent. He has not had any additional neurological symptoms since yesterday. Thoracic spine MRI with and without contrast did not show any abnormality including nerve root inflammations. 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 The patient at this point refuses admission, but prefers to receive IVIG outpatient at the infusion center . He is adamant leaving AGAINST MEDICAL ADVICE if he can receive IVIG as an outpatient treatment. Our impression, risk of progression of symptoms including sudden medical deterioration with respiratory and autonomic dysfunction are fully explained to patient. I have reviewed the patient's chart including imaging studies and visualized them personally. I have discussed the case with the patient, radiologist, and hospitalist physician. I have answered the patient's questions in detail. 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 HENT: Normal exam with inspection. CV: Hearth rhtyhm is regular. Neck: Supple, no carotid bruits. Lungs: Non-labored and comfortable breathing. Abdomen: Soft, non-tender, non-distended. Skin: No rash or ecchymosis. Extremities: No edema or cyanosis NEUROLOGICAL EXAMINATION: Mental Status: Alert and oriented to place, person and time. Cranial Nerves: II-XII are intact. No nystagmus. Funduscopy: Normal looking optic discs. Motor: 5/5 in all extremities without asymmetry. Tone: Normal without spasticity or rigidity. Sensory: Intact to all sensory modalities in upper and lower extremities other than paresthesia with decreased sensation on chest between T4-T10 level worse on the right. DTRs: 2+ all without asymmetry. No Babinsky. Coordination: No dysmetria with FTN testing. Speech: Fluent. Comprehension is intact. Gait: Normal with slight subjective unsteady feeling. No ataxia or abnormal walking pattern. Musculoskeletal: Normal muscle bulk, no atrophy. Results & Data ([facility]) Vital Signs (Past 12 Hours) Vital Signs Temp Pulse Pulse Resp BP BP Pulse Ox 01/17/22 07:00 36.9 C 78 18 95 01/17/22 06:29 72 18 111/68 95 01/17/22 05:40 74 18 104/56 L 92 01/17/22 05:10 75 18 103/58 L 92 01/17/22 04:07 37.1 C 86 18 134/71 95 01/17/22 03:00 84 20 01/17/22 03:00 140/62 01/17/22 02:30 77 18 94 01/17/22 02:30 122/63 01/17/22 02:00 72 20 93 01/17/22 02:00 145/66 H O2 Del Method 01/17/22 07:00 Room Air 01/17/22 06:29 Room Air 01/17/22 05:40 Room Air 01/17/22 05:10 Room Air 01/17/22 04:07 Room Air 01/17/22 03:00 01/17/22 03:00 01/17/22 02:30 01/17/22 02:30 01/17/22 02:00 01/17/22 02:00 Laboratory Results Laboratory Results - last 24 hr 01/16/22 01/16/22 01/16/22 21:45 21:45 21:45 WBC RBC Hgb Hct MCV MCH MCHC RDW Std Deviation RDW Coeff of Elzbieta Plt Count MPV Immature Gran % (Auto) Neut % (Auto) Lymph % (Auto) Luce % (Auto) Eos % (Auto) Baso % (Auto) Neut # (Auto) Lymph # (Auto) Luce # (Auto) Eos # (Auto) Baso # (Auto) Immature Gran # (Auto) Sodium Potassium Chloride Carbon Dioxide Anion Gap BUN Creatinine Est Cr Clr Drug Dosing Est GFR ( Amer) Est GFR (Non-Af Amer) BUN/Creatinine Ratio Glucose Calcium Total Bilirubin AST ALT Alkaline Phosphatase Total Protein Albumin Globulin Albumin/Globulin Ratio Fluid Comment CSF Appearance Clear CSF Color Colorless Xanthrochromic No xanthochromia CSF WBC 0 CSF RBC 0 CSF Cell Count Tube # 3 CSF Chemistry Tube # CSF Glucose CSF Total Protein CSF VDRL CSF West Nile RNA Pending A. phagocytophilum DNA SARS-CoV-2, RNA, NAAT Miscellaneous Test Pending 01/16/22 01/16/22 01/16/22 21:45 21:45 22:06 WBC RBC Hgb Hct MCV MCH MCHC RDW Std Deviation RDW Coeff of [place]zbi[place] Plt Count MPV Immature Gran % (Auto) Neut % (Auto) Lymph % (Auto) Luce % (Auto) Eos % (Auto) Baso % (Auto) Neut # (Auto) Lymph # (Auto) Luce # (Auto) Eos # (Auto) Baso # (Auto) Immature Gran # (Auto) Sodium Potassium Chloride Carbon Dioxide Anion Gap BUN Creatinine Est Cr Clr Drug Dosing Est GFR ( Amer) Est GFR (Non-Af Amer) BUN/Creatinine Ratio Glucose Calcium Total Bilirubin AST ALT Alkaline Phosphatase Total Protein Albumin Globulin Albumin/Globulin Ratio Fluid Comment CSF Appearance CSF Color Xanthrochromic CSF WBC CSF RBC CSF Cell Count Tube # CSF Chemistry Tube # 1 CSF Glucose 49 CSF Total Protein 84.3 H CSF VDRL Pending CSF West Nile RNA A. phagocytophilum DNA SARS-CoV-2, RNA, NAAT NEGATIVE Miscellaneous Test 01/17/22 01/17/22 01/17/22 05:30 05:30 05:30 WBC 7.47 RBC 4.96 Hgb 15.7 Hct 43.4 MCV 87.5 MCH 31.7 MCHC 36.2 H RDW Std Deviation 38.1 RDW Coeff of Elzbieta 11.9 Plt Count 222 MPV 10.0 Immature Gran % (Auto) 0.3 Neut % (Auto) 91.5 Lymph % (Auto) 7.4 Luce % (Auto) 0.7 Eos % (Auto) 0.0 Baso % (Auto) 0.1 Neut # (Auto) 6.84 H Lymph # (Auto) 0.55 L Luce # (Auto) 0.05 L Eos # (Auto) 0.00 Baso # (Auto) 0.01 Immature Gran # (Auto) 0.02 Sodium 136 Potassium 4.4 Chloride 106 Carbon Dioxide 22 Anion Gap 8 BUN 14 Creatinine 0.99 Est Cr Clr Drug Dosing 92.2 Est GFR ( Amer) 102.5 Est GFR (Non-Af Amer) 88.4 BUN/Creatinine Ratio 14.1 Glucose 162 H Calcium 9.3 Total Bilirubin 1.0 AST 14 ALT 18 Alkaline Phosphatase 37 Total Protein 6.6 Albumin 4.3 Globulin 2.3 L Albumin/Globulin Ratio 1.9 Fluid Comment CSF Appearance CSF Color Xanthrochromic CSF WBC CSF RBC CSF Cell Count Tube # CSF Chemistry Tube # CSF Glucose CSF Total Protein CSF VDRL CSF West Nile RNA A. phagocytophilum DNA Pending SARS-CoV-2, RNA, NAAT Miscellaneous Test Diagnostic Findings Abdomen/Pelvis CT 01/16/22 15:[address] WITH CONTRAST HISTORY: Acute chest and abdominal pain with loss of sensation. loss of sensation below nipples TECHNIQUE: Multiaxial CT images of the chest, abdomen and pelvis were performed following the IV administration of 90 cc of Optiray. A dose lowering technique was utilized adhering to the principles of ALARA. COMPARISON: None. FINDINGS: CT CHEST: Unremarkable thyroid. No lymphadenopathy. The heart is normal in size without pericardial effusion. Unremarkable thoracic aorta. Unremarkable pulmonary artery. No pneumothorax, pleural effusion, airspace consolidation or overt pulmonary edema. Mild dependent subsegmental bibasilar atelectasis. There are no suspicious pulmonary nodules or masses identified. The central airways are patent. Unremarkable soft tissues. No acute fracture or destructive bone lesion identified. CT ABDOMEN/PELVIS: No pneumatosis or pneumoperitoneum. Unremarkable spleen, pancreas, adrenal glands. There is equivocal gallbladder wall thickening without gallbladder di stention. There are 2 cysts within the left hepatic lobe measuring up to 3.7 cm. Hepatic steatosis. Patency of the hepatic and portal veins. Unremarkable kidneys. No hydronephrosis. Decompressed or bladder with wall thickening and perivesicular stranding. Prostamegaly. A Kirby catheter is in place. 1.3 cm fatty attenuating focus in the abdominal right lower quadrant on image 3 6 is likely benign. Small fat filled left inguinal hernia. No abdominal aortic aneurysm or lymphadenopathy. No bowel obstruction or bowel wall thickening. Nonspecific trace free pelvic fluid. Colonic diverticulosis. Moderate fecal retention. Normal appendix. Unremarkable soft tissues. No acute fracture. IMPRESSION: 1. No acute intrathoracic abnormality. 2. No bowel obstruction or bowel wall thickening. Normal appendix. 3. Decompressed urinary bladder with wall thickening and nonspecific trace free pelvic fluid. 4. Equivocal gallbladder wall thickening could be correlated with a right upper quadrant abdominal ultrasound. 5. Additional findings as above. ACT 112: Negative or not required by law. Electronically signed by: Luis Carlos Olson M.D. 01/16/2022 4:[address] 01/16/22 15:[address] WITH CONTRAST HISTORY: Acute chest and abdominal pain with loss of sensation. loss of sensation below nipples TECHNIQUE: Multiaxial CT images of the chest, abdomen and pelvis were performed following the IV administration of 90 cc of Optiray. A dose lowering technique was utilized adhering to the principles of ALARA. COMPARISON: None. FINDINGS: CT CHEST: Unremarkable thyroid. No lymphadenopathy. The heart is normal in size without pericardial effusion. Unremarkable thoracic aorta. Unremarkable pulmonary artery. No pneumothorax, pleural effusion, airspace consolidation or overt pulmonary edema. Mild dependent subsegmental bibasilar atelectasis. There are no suspicious pulmonary nodules or masses identified. The central airways are patent. Unremarkable soft tissues. No acute fracture or destructive bone lesion identified. CT ABDOMEN/PELVIS: No pneumatosis or pneumoperitoneum. Unremarkable spleen, pancreas, adrenal glands. There is equivocal gallbladder wall thickening without gallbladder distention. There are 2 cysts within the left hepatic lobe measuring up to 3.7 cm. Hepatic steatosis. Patency of the hepatic and portal veins. Unremarkable kidneys. No hydronephrosis. Decompressed or bladder with wall thickening and perivesicular stranding. Prostamegaly. A Kirby catheter is in place. 1.3 cm fatty attenuating focus in the abdominal right lower quadrant on image 3 6 is likely benign. Small fat filled left inguinal hernia. No abdominal aortic aneurysm or lymphadenopathy. No bowel obstruction or bowel wall thickening. Nonspecific trace free pelvic fluid. Colonic diverticulosis. Moderate fecal retention. Normal appendix. Unremarkable soft tissues. No acute fracture. IMPRESSION: 1. No acute intrathoracic abnormality. 2. No bowel obstruction or bowel wall thickening. Normal appendix. 3. Decompressed urinary bladder with wall thickening and nonspecific trace free pelvic fluid. 4. Equivocal gallbladder wall thickening could be correlated with a right upper quadrant abdominal ultrasound. 5. Additional findings as above. ACT 112: Negative or not required by law. Electronically signed by: Luis Carlos Olson M.D. 01/16/2022 4:03 PM Thoracic Spine MRI 01/16/22 16:45 MR thoracic spine wo con HISTORY: 51 years-old Male numbness below nipples numbness of the torso and upper extremities. COMPARISON: MRI cervical and lumbar spine study the TECHNIQUE: Multiplanar multisequence MRI of the thoracic spine was obtained without the use of IV contrast. FINDINGS: No gross extraspinal abnormality identified. The study is mildly motion degraded. Discogenic degeneration of the lower cervical spine. There is normal signal of the thoracic and imaged cervical spinal cord no acute fracture, subluxation, endplate erosion, significant bone marrow or soft tissue edema. There is mild multilevel disc desiccation with minimal intervertebral disc space narrowing and spondylitic spurring with mild facet arthrosis. No significant central canal or neural foraminal narrowing. IMPRESSION: 1. No significant central canal or neural foraminal narrowing of the thoracic spine. 2. No acute fracture. 3. Normal signal of the thoracic spinal cord. ACT 112: Negative or not required by law. The above report was generated using voice recognition software. It may contain grammatical, syntax or spelling errors. Electronically signed by: Luis Carlos Olson M.D. 01/16/2022 6:47 PM Thoracic Spine MRI 01/16/22 22:09 THORACIC SPINE MRI WITH AND WITHOUT CONTRAST HISTORY: Numbness and weakness in legs. Evaluate thoracic spine with contrast. TECHNIQUE: Axial and sagittal pre and postcontrast T1 sequences of the thoracic spine were performed with the intravenous administration of 8.5 cc of Gadavist contrast at 1.5 [place] MRI. COMPARISON: Noncontrast thoracic spine MRI 01/16/2022. FINDINGS: No fracture or subluxation within the thoracic spine. Disc spaces are preserved. No abnormal enhancement. Specifically, the thoracic spinal cord demonstrate a normal signal intensity. Paravertebral soft tissues are unremarkable. IMPRESSION: No abnormal enhancement within the thoracic spine. ACT 112: Negative or not required by law. Electronically signed by: Harlan Sanders M.D. 01/17/2022 7:47 AM Brain MRI w/wo contrast, C-spine MRI w/wo contrast and L-spine MRI were also unremarkable other than cervical bulging discs.
--- NOTE | 2022-01-17 15:44 | Discharge Summary ---
Date of Service January 17, 2022 Admission HPI Per Admitting Provider 51yo male with a history of HTN presents with a one-week history of multiple symptoms including bilateral but asymmetric skin hypersensitivity, skin hyperalgesia, skin paresthesias, LE weakness, urinary incontinence, and fecal incontinence, concerning for neuroinflammatory disorder e.g. transverse myelitis. Summary of 01/13 visit: Three weeks ago, patient was diagnosed with covid; patient had fatigue and congestion for about 3-4 days, after which all symptoms resolved. Patient then presented to the ED on 01/13 (three days ago) with multiple symptoms, which had started three days prior. Symptoms started with hypersensitivity of the right trapezius area that progressed across his back and chest to his left arm over the course of the day. Had trouble sleeping due to discomfort but no overt pain. He then developed RLE weakness with associated difficulty walking, in addition to paresthesias of the abdomen. Patient developed hyperalgesia of his hands and wrists, as well as urine incontinence. At that time he did not have any significant low back pain, fever, chills, abdominal pain, nausea, vomiting, chest pain, SOB, lightheadedness, dizziness, syncope, hematuria, or saddle anesthesia. 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 At that time, Lyme IgG testing and anaplasma/babesia smears were negative. Imaging done at 01/13 ED visit: MRI brain: no acute intracranial abnormality MRI c-spine: no fracture or subluxation; small focal central disc protrusions at C3-C4, C5-C6, and C6-C7 MRI l-spine: no fracture or subluxation; small focal central disc protrusions at L4-L5 and L5-S1 without significant central canal or neural foraminal narrowing; bladder appears distended A rodriguez was recommended for bladder decompression, but patient declined. Straight cath yielded 850mL urine and patient felt markedly improved. Patient was started on flomax, but became confused after the dose he received in the ED, and so he has not filled this or taken it since. Today's visit: Patient presents today with persistent symptoms. Patient reports a distended abdomen, persistent bilateral leg weakness, and issues with incontinence. Patient has had two episodes of fecal incontinence in addition to continued urinary incontinence since last ED visit. Endorses numbness from his thighs upward to just below the nipple line, sparing the groin. Patient denies fever, chills, headache, vision changes, CP, palpitations, SOB, edema, abdominal pain, nausea, vomiting, hematochezia, melena, back pain, lightheadedness, dizziness, or other symptoms. Denies saddle anesthesia. Initial vitals today were unremarkable; BP controlled, no tachycardia or tachypnea, patient afebrile, spO2 adequate on room air. Initial labs in the ED were without leukocytosis or leukopenia, no anemia, platelets wnl, no electrolyte abnormalities, LFTs wnl, UA not infected. Covid PCR negative. MS panel pending. Lumbar puncture in the ED revealed elevated CSF protein (84.3) without increased glucose, no WBCs or RBCs. CSF chemistry and VDRL/West Nile RNA testing pending. Imaging done at 01/16 ED visit: CT a/p: no acute intrathoracic abnormality; no bowel obstruction or bowel wall thickening; decompressed urinary bladder with wall thickening and nonspecific trace free pelvic fluid; equivocal gallbladder wall thickening could be correlated with a right upper quadrant abdominal ultrasound CT chest: same findings as CT a/p above MRI t-spine w/wo contrast ([facility] read): unremarkable spine alignment; vertebral body heights well-maintained; no abnormal marrow signal or abnormal enhancement; in-house over-read pending Surrogate decision-maker in case of an emergency: Beth García (cell: [phone]) Principal Diagnosis Weakness of both legs with paresthesia and fecal incontinence and acute urinary retention Elevated CSF protein Discharge Exam Constitutional NAD, vitals WNL, afebrile Eyes PERRL Respiratory CTA bilaterally, no rhonchi, rales, or wheezing. No increased work of breathing. Cardiovascular RRR. No murmur noted. Neurologic 5/5 strength throughout upper and lower extremities Sensation intact and equal throughout except left side of abdomen from below nipple line to inguinal region pt has pins and needles sensation. This sensation begins midline and starts to wrap around his back. Gait normal Discharge Data Allergies Allergy/AdvReac Type Severity Reaction Status Date / Time Penicillins AdvReac Hives Unverified 08/14/21 13:00 Consultations 01/16/22 22:18 ED Decision to Admit Stat 01/17/22 07:00 Consult Neurology Routine Ordered Studies 01/16/22 15:00 CT Abd and Pelvis [CT abd pelvis IV con only] Stat 1. No acute intrathoracic abnormality. 2. No bowel obstruction or bowel wall thickening. Normal appendix. 3. Decompressed urinary bladder with wall thickening and nonspecific trace free pelvic fluid. 4. Equivocal gallbladder wall thickening could be correlated with a right upper quadrant abdominal ultrasound. 5. Additional findings as above. CT chest diagnostic w con Stat 1. No acute intrathoracic abnormality. 2. No bowel obstruction or bowel wall thickening. Normal appendix. 3. Decompressed urinary bladder with wall thickening and nonspecific trace free pelvic fluid. 4. Equivocal gallbladder wall thickening could be correlated with a right upper quadrant abdominal ultrasound. 5. Additional findings as above. 01/16/22 16:45 MR thoracic spine wo con Stat 1. No significant central canal or neural foraminal narrowing of the thoracic spine. 2. No acute fracture. 3. Normal signal of the thoracic spinal cord. 01/16/22 22:09 MR thoracic spine wo/w con Stat No abnormal enhancement within the thoracic spine. Hospital Course (1) Weakness of both legs: Pt is a 51 yo male with a history of HTN presents with a one-week history of multiple symptoms including bilateral but asymmetric skin hypersensitivity, skin hyperalgesia, skin paresthesias, LE weakness, urinary retention, and fecal incontinence, concerning for neuroinflammatory disorder (transverse myelitis). He was recently in the ER (01/13) for the same symptoms. Multiple neurologic symptoms concerning for acute transverse myelitis vs other neuroinflammatory conditions - Multi-level, bilateral, asymmetric symptoms of acute onset concerning for transverse myelitis vs other neuroinflammatory conditions - If symptoms are due to neuroinflammatory condition, could possibly have been triggered by recent COVID infection (3 weeks ago) - CSF noted with elevated total protein (84.3) without increased glucose, no WBCs or RBCs - CSF chemistry and VDRL/West Nile RNA testing pending, serum MS panel pending, babesia and anaplasma PCR pending - Other labs unremarkable; no leukocytosis or leukopenia, no anemia, platelets wnl, no electrolyte abnormalities, LFTs wnl, UA not infected - No acute findings on MRI brain or MRI of cervical, thoracic, and lumbar spine or CTAP to suggest possible etiology - Neurology recommended continued inpatient monitoring with continuation of IVIg for 5 days. Pt does not desire admission at this time. He would prefer the treatments be set up outpatient. - Per ED provider discussion with neurology, recommended IVIg 0.4g/kg once daily for five days. 1st day today- will continue for the next 3 days as outpatient at [facility] (neuro ok with 4 days of total treatment) - Dexamethasone 10mg daily for five days. 1st day today. Will discontinue upon discharge Urinary retention sec to above process - Pt discharged with a rodriguez catheter. Will need outpatient voiding trial. Referral for urology placed as well. Hypertension - BP well-controlled on admission and throughout stay - Continue home lisinopril FEN: regular diet Code status: full code Dispo: home (2) Paresthesia: (3) Acute urinary retention: (4) Urinary incontinence: (5) Fecal incontinence: (6) Elevated CSF protein: Total Time Total Time Spent Total Time Spent (In Minutes): As per attending attestation Discharge Plan Discharge Items Patient Disposition: Home - Self-Care Reason For Visit: MULTIPLE NEURO SYMPTOMS, C/F NEUROINFLAMMATORY D/O Discharge Diagnosis: Weakness of both legs with T4-T10 paresthesias and episodes of fecal/urinary incontinence, concerning for neuroinflammatory cause Activity: Per Instructions section Non-emergency contact: Primary Care Provider Call non-emergency contact if: your symptoms worsen Follow-up/Referrals: Sav Boogie MD [Physician] - (D/c from hospital with rodriguez catheter for urinary retention) Maribel Ellison [Primary Care Provider] - Alex Parks MD [Physician] - Diet: Regular Addtl Attending Provider Instructions: You were in the hospital/emergency room for multiple neurologic symptoms including weakness in your legs, pins and needles sensation on your abdomen, and fecal/urinary incontinence. You were treated with steroids (dexamethasone) and IV immunoglobulin. Medications: - You will no longer be taking a steroid. - You have been set up to receive the IV immunoglobulin for 3 days (Sunday, , and Sunday AM this week for 5 hours of treatment each morning) at the [facility]. The [facility] is on the ground level of the hospital. - Continue your lisinopril 5 mg at home for your blood pressure. Follow up appointments: Follow up with Neurology within the next 2 weeks -- a referral has been sent for you. If you have not heard from them before the weekend, please call their office. Make a follow up appointment with your PCP within the next week. It is very important that you follow up with them shortly after discharge from the hospital. CALL 911 OR RETURN TO THE EMERGENCY DEPARTMENT if you experience any of the following: - Worsening of your symptoms (including increased weakness or sensation loss) - Increased fecal/urinary incontinence - Loss of sensation around your perineum (genitals/anus) - Severe headaches or dizziness - Chest pain, palpitation - Uncontrollable nausea or vomiting, abdominal pain - Any other concerning symptoms Pending Studies at Discharge: Yes (CSF chemistry, VDRL, West Nile, Serum MS testing, Babesia and anaplasma PCR) Stand-Alone Forms: My [facility], Smoking Cessation Medications and DC Order Prescriptions: Continued lisinopril 5 mg tablet 5 mg PO PM Discontinued tamsulosin [Flomax] 0.4 mg capsule 0.4 mg PO DAILY Qty: 14 0RF Discharge Orders: Discharge Order (Routine); Ordered 01/17/22 Ordered By: Kofi [facility]Franc[facility] Data Admit Date/Time: 01/17/22 00:40 Attending Provider: Janey Castro Admit Provider: Gino Downs Primary Care Provider: Maribel Ellison Other Providers: Julianne Clement Adam M. Other Interventions: Discharge Summary Assessment (RN) Last Done: 01/17/22 16:21 Supervising Physician Co-Signing Physician Notes Resident Physician Supervision Note: I independently interviewed and examined the patient and verified the clement history and physical, reviewed labs and image studies and agree with resident Dr. Navarro findings and care plan. Resident Activity Tracking Resident Involvement: Resident Care Provided Care Provided: Adult Hospital Medicine
[2022-01-17] MEDS ORDERED: lisinopril 5 MG TAB PO SCH (21:00)
[2022-01-17] MEDS ORDERED: dexAMETHasone 10 MG in SYRINGE 0 ML IV SCH (22:00)
--- NOTE | 2022-01-19 02:06 | Billing Data ---
Date of Service January 16, 2022 Coding Level of Care Code 15099 Initial Inpt Care Lvl 2
== END 2022-01-17 17:16 | disposition home or self-care (01) ==
LOC: ED 11:24 → EDINP 11:24 → SUATTDRO 01-17 00:40 → EDINP 01-17 03:17